=== PATIENT | female | born 1995 | race Caucasian/White ===

== ENCOUNTER 2022-01-23 21:20 | Emergency (ER) | payer OTHER, SELFPAY ==
--- NOTE | 2022-01-23 21:22 | XRR_ITS ---
PROCEDURE INFORMATION: Exam: XR Left Shoulder Exam date and time: 01/23/2022 9:35 PM Age: 26 years old Clinical indication: Pain; Shoulder; Left; Additional info: Left shoulder injury TECHNIQUE: Imaging protocol: XR Left shoulder. Views: 2 or more views. COMPARISON: No relevant prior studies available. FINDINGS: Bones/joints: Nondisplaced transverse fracture of the mid left clavicle. No dislocation. Normal bone mineralization. No joint effusion. Joint spaces are maintained. Lungs: The visualized left lung is clear. Soft tissues: No soft tissue swelling. No radiopaque foreign body. XR/XR shoulder LT min 2V* 41002 IMPRESSION: Nondisplaced transverse fracture of the mid left clavicle.
--- NOTE | 2022-01-23 21:43 | ED_ITS ---
HPI - Extremity Problem General: Stated complaint: L shoulder injury Time Seen by Provider: 01/23/22 21:45 Source: patient Mode of arrival: ambulatory Limitations: no limitations History of Present Illness: 26-year-old female states she been golfing this evening she states that she bent out of the car to pick up attendant a golf ball and fell onto the cart and landed right on her left shoulder. She has pain to her left shoulder over the clavicle states pain is currently 5 out of 10 denies any other injuries denies hitting her head denies any neck pain patient is ambulatory. Associated symptoms: Deny chest pain, fever(s) or rash Review of Systems Const: Denies: fever(s), chills, body aches or change in appetite Eyes: Denies: blurry vision or eye discomfort ENMT: Denies: throat pain or dental pain Card: Denies: chest pain Resp: Denies: dyspnea GI: Denies: abdominal pain, nausea, vomiting or diarrhea : Denies: dysuria Musc: Reports: extremity pain Skin/Breast: Denies: rash Neuro: Denies: headache(s) Psych: Denies: depression Boni/Lymph: Denies: easy bruising All/Imm: Denies: urticaria Physical Exam Const: COMMON NORMALS: no acute distress, patient oriented x3 and healthy appearing HENMT: COMMON NORMALS: normocephalic and atraumatic HEAD & SCALP: normocephalic and atraumatic Eye: COMMON NORMALS: Equal, round and reactive pupils present and EOMs intact bilaterally PUPIL: Yes Equal, round and reactive pupils present Neck/C-Spine: COMMON NORMALS: full ROM and supple Chest: COMMONS NORMALS: normal inspection of the chest Resp: COMMON NORMALS: normal respiratory effort Cardio: COMMON NORMALS: regular rate, regular rhythm and No murmurs present (Cardio) RATE: regular rate RHYTHM: regular rhythm GI: INSPECTION: Yes normal to inspection Extremity: NARRATIVE EXTREMITY EXAM: Tenderness over left clavicle has full range of motion of the left arm distal pulses intact Neuro: COMMON NORMALS: patient oriented x3, moves all extremities and no focal motor deficits Psych: COMMON NORMALS: mental status grossly normal, Normal thought process present and cooperative THOUGHT PROCESS: Normal thought process present Skin: COMMON NORMALS: no rashes or lesions noted and no wounds GENERAL SKIN EXAM: no rashes or lesions noted MDM - Extremity (Nontraumatic) Medical Decision Making Patient presents here with a left clavicle fracture from a fall. She did not hit her head she has no head pain no neck pain patient placed in a sling she actually lives in [place] is to follow-up with her PCP or orthopedist there. Discharge Plan Discharge Patient Disposition: Home Clinical Impression: Clavicle fracture Qualifiers: Encounter type: initial encounter Clavicle location: shaft Fracture type: closed Fracture alignment: nondisplaced Laterality: left Qualified Code(s): S42.025A - Nondisplaced fracture of shaft of left clavicle, initial encounter for closed fracture Condition: Stable Prescriptions: New Naprosyn 500 mg tablet 500 mg PO BID PRN (Reason: pain) Qty: 20 0RF Discharge Orders: Discharge ED (Routine); Ordered 01/23/22 Ordered By: Sarai Chance Referrals: Parminder Esparza MD [Physician] - 1-3 days Discharge Diet: Advance as tolerated Discharge Activity: Resume usual activity Patient Instructions: Clavicle Fracture (ED) Coding Level of Care Code ED Concaving Machine Operator for Griselda Castillo
[2022-01-23] MEDS: naproxen 500 mg Tablet PO (21:56)
[2022-01-23 22:01] VITALS: BP 129/88; PULSE 95; RESP 18; TEMP 36.7; O2SAT 98; BMI 19.3
== END 2022-01-23 22:08 | disposition home or self-care (01) ==
PROVIDERS: Emergency Provider Emergency Medicine
DX: S42.025A Nondisplaced fracture of shaft of left clavicle, initial encounter for closed fracture (principal); W17.89XA Other fall from one level to another, initial encounter
CPT/HCPCS: 73030; 99283; E0114